=== PATIENT | male | born 1960 | race Caucasian/White ===

== ENCOUNTER 2017-10-24 01:17 | Inpatient (IN) | payer OTHER ==
[~2017-10-24] VITALS: Ht 177.8 cm; Wt 129.3 kg
[~2017-10-24 01:17] MED LIST: ACIPHEX20 M1 PO; ALLOPURINOL300 M1 PO; ASPIRIN EC81 M1 PO; CRESTOR20 M2 PO; FLUOXETINE HCL10 M2 PO; LISINOPRIL20 M1 PO; LOPRESSOR50 M1 PO; NASONEX17 GM NASB; PROAIR HFA8.5 GM INH; SYMBICORT 16010.2 GM INH; VOLTAREN100 GM TOP
[2017-10-24 06:49] LABS: PT 10.9 SEC (9.4-12.5)
--- NOTE | 2017-10-24 10:19 | Operative Report ---
Operative/Inv Procedure Report Surgery Date: 10/24/17 Name of Procedure: Right total knee arthroplasty Pre-Operative Diagnosis: Right knee primary osteoarthritis Post-Operative Diagnosis: Same with final pathology pending Estimated Blood Loss: less than 50ml Surgeon/Race Relations Professor: Marycruz PEDERSON,Alexx Alvarado PA Anesthesia: moderate sedation, block Implants: Summit triathlon total knee system-size 6 femur, size 6 tibia, 9 mm cruciate retaining polyethylene, 31 patella Drains: None Specimens: Femoral, tibial, patellar bone, Microbiology: Urine Tourniquet: 59 minutes Complications: None Condition: Stable Operative Indication: Patient is a 56-year-old man with a long history of worsening right knee pain. He was diagnosed with osteoarthritis. Treatment has included medications activity modification injections but unfortunately had increasing symptoms that interfere with normal activities of daily living. He wished to proceed with total knee arthroplasty after risks benefits and expectations were discussed which included but were not limited to persistent knee pain, need for subsequent surgery, infection, DVT, injury blood vessel or nerve, anesthesia risks Operative/Procedure Note Note: Patient was brought to the operating room and transferred to the operating table. Once under appropriate anesthesia the right lower extremity was prepped and draped in standard fashion. Preoperative IV antibiotic's were given prophylactically. Leg was elevated exsanguinated tourniquet was inflated. Incision was made. Incision was taken down to the underlying retinaculum. A medial retinacular approach was used with extension into the medial quadriceps tendon. Osteophytes were noted along the medial plateau distal femur. Remnants of the medial lateral meniscal tissues were excised. Portion of the fat pad was excised for proper visualization. Remnants of the ACL were excised. Knee was flexed patella was subluxed. Drill was used to enter intramedullary canal for the intramedullary guide for the distal femoral cut. This was cutting guide was pinned in place for 6 valgus cut. The cut was made while protecting the soft tissues. The femur was incised was size 6. Size 6 cutting jig was pinned in place and all cuts were made. I then turned my attention to the tibia. Remnants of the posterior horns of the medial and lateral meniscus meniscal tissues were excised. PCL was recessed. Retractors were placed posteriorly medially and laterally. The external tibial alignment guide was used to pin the cutting block for the proximal tibial cut. This cut was made in the neutral plane from medial to lateral and reproducing patient's posterior slow-paced on intraoperative findings, preoperative templating. The cut was made. The tibia was sized to a size 6. Trial reduction was then completed. I was satisfied with the soft tissue balancing. The knee was taken out to full extension. I then measured the patella and the appropriate thickness was removed and then replaced with a 31 patella. The rotation was marked on the tibia. The 2 lug holes were drilled in the femur. I then removed all instrumentation. The final preparation of the tibia was completed using the previously marked rotation of the tibial component the tibial punch was used and then all his rotation was removed from the knee. Copious irrigation followed. Cement was being mixed on the back table. Once the cement was ready was applied to the dry clean bony surfaces of the tibia. The size 6 tibial component was impacted in place and excess cement was removed with curettes. I should mention prior to cementation of the tibia multiple small drill holes were made in the eburnated bone on the medial side for proper cement interdigitation. I then placed cement was dry clean bony surfaces of distal femur. The size 6 femoral component was impacted in place and excess cement was removed with curettes. The trial insert was placed and the knee was taken out to full extension. Cement was applied to the dry clean bony surfaces of the patella. The size 31 patella was impacted in place and excess cement was removed with Q with a knife. While waiting for the cement to harden the tibia. Articular pericapsular injection of a cocktail of ropivacaine with epinephrine and Toradol for postoperative pain and inflammation management. Once cement hardened I took the knee through range of motion. I was satisfied with the 9 mm insert. The trial insert was removed. Copious irrigation the tibial tray followed. Any remaining soft tissue, bone fragments or cement fragment was irrigated out of the tibial tray and then the definitive size 9 mm cruciate retaining polyethylene was impacted in place and the locking mechanism was confirmed. The knee was taken out to full extension. Excellent mid flexion stability. Full flexion to gravity. Copious irrigation followed. Tourniquet was deflated at 59 minutes. Patient had excellent patellofemoral tracking there was no need for a lateral release. Hemostasis was obtained. I then closed the retinacular incision with a minimal extension the quadriceps with interrupted #1 Vicryl sutures. Subcutaneous tissues closed in 2 layers with 2-0 Vicryl. Skin was closed with a running 3-0 Vicryl suture with the knee in flexion. Appropriate dressings were applied and patient was awakened and taken to recovery room in good condition. No intraoperative complications. Blood loss was less than 50 mL Discharge Disposition: PACU
[2017-10-24 13:30] VITALS: BP 118/82
[2017-10-24] MEDS ORDERED: METFORMIN HCL500 M2 (13:54)
--- NOTE | 2017-10-24 14:09 | PN- Orthopedic ---
Subjective Subjective: POC Pt had 1 episode of vomitus after the procedure associated with sweating. Nausea has resolved now. Denies pain at the given moment. Has not gotten out of bed yet. Patient is awaiting PT evaluation. Pt informed us he takes Metformin at home for diabetes. Pt denies any CP, SOB or discomfort at this time. Objective Vital Signs and I&Os see EMR Physical Exam: GEN- Middle aged man, sitting up in bed, NAD. Irby in place. CARD- Regular rate and rhythm. S1 and S2 heard with no murmurs, rubs or gallops appreciated. Radial pulses palpable. PULM-Even, non-labored rise and fall of the chest noted. Normal breath sounds heard in anterior and posterior lung huff. No wheezes, rales or rhonchi appreciated. ABD- Soft, non-tender, non-distended. EXT-RLE elevated on pillow with dressing clean, dry and intact.gross sensation intact bl feet/ankles. +dorsi/plantar felxion, equal strength bl. Ice pack in place on right knee. Bilateral lower calves are soft and non-tender. Dorsalis pedis and posterior tibialis pulses palpable bilaterally. ALP devices in place. Current Medications: Current Medications Sig/Arianne Start time Last Medication Dose Route Stop Time Status Admin Acetaminophen 0 .STK-MED ONE 10/25 711 DC PO Acetaminophen 0 .STK-MED ONE 10/24 0710 DC IV Acetaminophen 650 MG ONCE 10/24 0000 DC PO 10/24 2359 Albuterol Sulfate 2 PUF Q4-6 PRN PRN 10/24 1315 AC INH Allopurinol 300 MG DAILY 10/25 0900 AC PO Apixaban 2.5 MG BID 10/25 09 AC PO Atorvastatin Calcium 80 MG 1700 10/24 1700 AC PO Budesonide/ 2 PUF BID 10/24 2100 AC Formoterol Fumarate INH Celecoxib 400 MG DAILY 10/25 09 AC PO Celecoxib 400 MG ONCE 10/24 0000 DC PO 10/24 2359 Dexamethasone 0 .STK-MED ONE 10/24 0712 DC .ROUTE Dexamethasone 10 MG ONCE 10/24 0000 DC IV 10/24 2359 Docusate Sodium 100 MG BID PRN 10/24 1015 AC PO Fentanyl Citrate 0 .STK-MED ONE 10/24 0711 DC .ROUTE Fluoxetine HCl 10 MG DAILY 10/25 09 AC PO Gabapentin 0 .STK-MED ONE 10/24 0712 DC PO Gabapentin 300 MG ONCE 10/24 0000 DC PO 10/24 2359 Insulin Aspart 0 TIDAC 10/24 1700 AC SC Lisinopril 20 MG DAILY 10/25 0900 AC PO Metoprolol Tartrate 75 MG BID 10/24 2100 AC PO Midazolam HCl 0 .STK-MED ONE 10/24 0711 DC .ROUTE Morphine Sulfate 2 MG Q3P PRN 10/24 1315 AC IV Morphine Sulfate 0 .STK-MED ONE 10/24 0711 DC .ROUTE Omeprazole 40 MG DAILY AC 10/25 0700 AC PO Ondansetron HCl 4 MG Q6P PRN 10/24 1315 AC 10/24 IV 1337 Ondansetron HCl 0 .STK-MED ONE 10/24 0711 DC .ROUTE Oxycodone HCl 0 .STK-MED ONE 10/24 0712 DC PO Oxycodone HCl 10 MG ONCE 10/24 0000 DC PO 10/24 2359 Oxycodone/ 1 TAB Q4P PRN 10/24 1315 AC Acetaminophen PO Oxycodone/ 2 TAB Q4P PRN 10/24 1315 AC Acetaminophen PO Polyethylene Glycol 17 GM DAILY PRN 10/24 1015 AC PO Scopolamine HBr 0 .STK-MED ONE 10/24 0711 DC TOP Scopolamine HBr 1 PAT ONCE 10/24 0000 DC TOP 10/24 2359 Senna/Docusate Sodium 2 TAB AT BEDTIME NEED.. 10/24 1315 AC PO Sodium Chloride 1,000 ML .[id number] 10/24 1315 AC 10/24 IV 1337 Tiotropium Douglas 1 PUF DAILY 10/25 0900 AC INH Tranexamic Acid 0 .STK-MED ONE 10/24 0737 DC IV Vancomycin HCl 2,000 MG ONCE ONE 10/24 1900 AC Sodium Chloride 500 ML IV 10/24 205 Vancomycin HCl 2,000 MG ONCE 10/24 0000 DC Sodium Chloride 500 ML IV 10/24 2359 Results Last 48 Hours of Labs: Laboratory Tests 10/24 0629 Coagulation PT (9.4 - 12.5 SEC) 10.9 INR (0.90 - 1.17) 1.00 Assessment/Plan Assessment/Plan A:Pt is a 56 year old male POD #0 sp right total knee replacement due to primary osteoarthritis, past medical history includes Type II DM, HTN and COPD, Pt had one episode of nausea and vomiting, which has since resolved. Post-operative pain is well controlled P: Continue to follow patient and monitor pain control and nausea. Hold patient's at home metformin and start low dose insulin sliding scale. Diet changed to consistent carbohydrate diet. Will plan to remove Irby in the morning (10/26) Can be weight bearing as tolerated. Physical Therapy to see the patient. On Eliquis 2.5 mg BID for DVT prophylaxis Dressing to be changed on POD #2 (10/27) Continue patient's at home medications. Core Measures Venous Thromboembolism VTE Risk Factors Surgery No Mechanical VTE Prophylaxis d/t N/A MechProphylax Ordered No VTE Pharm Prophylaxis d/t NA PharmProphylax ordered
--- NOTE | 2017-10-24 14:10 | Admission Core Measures ---
Acute Coronary Syndrome (CM) ACS Core Measures Acute Coronary Syndrome Diagnosis No Congestive Heart Failure (NEW) CHF Core Measures Congestive Heart Failure Diagnosis No Cerebrovascular Accident CVA Core Measures CVA/TIA Diagnosis No Venous Thromboembolism VTE Core Augustine (View Protocol) VTE Risk Factors Surgery No Mechanical VTE Prophylaxis d/t N/A MechProphylax Ordered No VTE Pharm Prophylaxis d/t NA PharmProphylax ordered Problem List As ranked by this Provider includes Assessment & Plan 1. Primary osteoarthritis of right knee HOME MEDS Home Med List Albuterol Sulfate (Proair Hfa) 90 MCG HFA.AER.AD 2 PUF INH Q4-6 PRN PRN RESCUE INHALER (Reported) Allopurinol 300 MG TABLET 1 TAB PO DAILY GOUT (Reported) Aspirin (Ecotrin*) 81 MG TABLET.DR 1 TAB PO DAILY CARDIAC (Reported) Budesonide/Formoterol Fumarate (Symbicort 160-4.5 Mcg Inhaler) 160 MCG-4.5 MCG/ ACTUATION HFA.AER.AD 2 PUF INH BID COPD (Reported) Diclofenac Sodium (Voltaren) 1 % GEL..GRAM. 1 GM TOP 4 TIMES/DAY PAIN ( Reported) Fluoxetine HCl 10 MG CAPSULE 1 CAP PO DAILY MOOD (Reported) Lisinopril 20 MG TABLET 1 TAB PO DAILY HTN (Reported) Metoprolol Tartrate (Lopressor) 50 MG TABLET 1.5 TAB PO BID CARDIAC (Reported ) Mometasone Furoate (Nasonex) 50 MCG SPRAY.PUMP 1 SPRAY NASB DAILY ALLERGIES ( Reported) Rabeprazole Sodium (Aciphex) 20 MG TABLET.DR 1 TAB PO DAILY GI (Reported) Rosuvastatin Calcium (Crestor) 20 MG TABLET 1 TAB PO DAILY CHOLESTEROL ( Reported)
--- NOTE | 2017-10-24 14:13 | Surgical Discharge Summary ---
Visit Information Visit Dates Admission Date: 10/24/17 Discharge Date: 10/27/2017 History of Present Illness Chief Complaint: knee pain r/t osteoarthritis Medical History Isolation History: Standard Surgical History Pertinent Surgical History: knee replacement Review of Systems: see H&P Hospital Course Course Attending Physician: Christiano Joel MD Primary Care Physician: Gal PEDERSON,[facility] Course: Patient was admitted to the hospital for an elective right total knee replacement. The procedure was tolerated well and patient was transferred to a general surgical floor. Postoperatively patient appeared to have an acute kidney injury with creatinine elevated to 1.6. His NATALIE inhibitor, Celebrex, and metformin were held and IV fluids were given until his creatinine returned to baseline of 0.9, then home medications were restarted. Diet was advanced and tolerated. The patient was evaluated and treated by physical therapy. At the time of hospital discharge, the vital signs were stable, neurovascular status was intact, and pain was controlled with the use of oral pain medications. Allergies: Coded Allergies: No Known Allergies (10/17/17) Significant Procedures: 10/24/17: right total knee replacement Disposition Summary Disposition Principal Diagnosis: right knee primary osteoarthritis Additional Diagnosis: sp r total knee replacement Discharge Disposition: home health services Discharge Instructions General Discharge Information Code Status: Full Code Patient's Diet: diabetic Patient's Activity: WBAT Follow-Up Instructions/Appts: Call to be seen in office in 2 weeks Please follow-up with primary care physician within 1 week of discharge Medications at Discharge Discharge Medications: Continue taking these medications: Albuterol Sulfate (Proair Hfa) 90 MCG HFA.AER.AD 2 Puff Inhale through mouth EVERY 4-6 HOURS NEEDED as needed for RESCUE INHALER Allopurinol (Allopurinol) 300 MG TABLET 1 Tablet ORAL DAILY Aspirin (Ecotrin*) 81 MG TABLET.DR 1 Tablet ORAL DAILY Diclofenac Sodium (Voltaren) 1 % GEL..GRAM. 1 Gram On the skin 4 TIMES A DAY Instructions: apply to affected area(s) Fluoxetine HCl (Fluoxetine HCl) 10 MG CAPSULE 1 Capsule ORAL DAILY Lisinopril (Lisinopril) 20 MG TABLET 1 Tablet ORAL DAILY Metoprolol Tartrate (Lopressor) 50 MG TABLET 1.5 Tablet ORAL TWICE DAILY Rabeprazole Sodium (Aciphex) 20 MG TABLET.DR 1 Tablet ORAL DAILY Rosuvastatin Calcium (Crestor) 20 MG TABLET 1 Tablet ORAL DAILY Budesonide/Formoterol Fumarate (Symbicort 160-4.5 Mcg Inhaler) 160 MCG-4.5 MCG/ ACTUATION HFA.AER.AD 2 Puff Inhale through mouth TWICE DAILY Mometasone Furoate (Nasonex) 50 MCG SPRAY.PUMP 1 [place] Both sides of nose DAILY Metformin HCl (Metformin HCl ER) (Unknown Strength) TAB.ER.24 Unknown Dose Copies To: Gal PEDERSON,Paramjit
--- NOTE | 2017-10-24 14:17 | Patient Discharge Instructions ---
Discharge Instructions General Discharge Information You were seen/treated for: right knee pain r/t osteoarthritis You had these procedures: right total knee replacement Watch for these problems: Increasing pain despite the use of pain medication Increasing redness, warmth or swelling Drainage of any type from incision Inability to bear weight on operative leg Persistent nausea and vomiting Fever greater than 101.5 degrees Other wound care: Keep wound clean and dry. No ointments or lotions of any type on or near incision at any time. Your dressing will be changed by your nurse on the second day after your surgery. Daily dry dressing changes are recommended each day thereafter. Do not soak your wound in a bath or pool at any time until otherwise indicated by your surgeon. You may shower, please dry wound immediately after shower with a clean towel. Special Instructions: Take Eliquis as directed for prevention of postoperative blood clots. Follow-up with your primary care physician to monitor renal function, as your creatinine was elevated immediately postoperatively but has since normalized. Diet Recommended Diet: Diabetic Activity Activity Limited to: Weight bear as tolerated Additional ACTIVITY Info: use assistive devices as needed Acute Coronary Syndrome Inclusion Criteria At DC or during hospital stay patient has or had the following: ACS DIAGNOSIS No Discharge Core Measures Meds if any: Prescribed or Continued at Discharge Meds if any: NOT Prescribed or Continued at Discharge Congestive Heart Failure Inclusion Criteria At DC or during hospital stay patient has or had the following: CHF DIAGNOSIS No Discharge Core Measures Meds if any: Prescribed or Continued at Discharge Meds if any: NOT Prescribed or Continued at Discharge Cerebrovascular accident Inclusion Criteria At DC or during hospital stay patient has or had the following: CVA/TIA Diagnosis No Discharge Core Measures Meds if any: Prescribed or Continued at Discharge Meds if any: NOT Prescribed or Continued at Discharge Venous thromboembolism Inclusion Criteria VTE Diagnosis No VTE Type NONE VTE Confirmed by (Test) NONE Discharge Core Measures - Per Current guidelines, there needs to be overlap - treatment for the first 5 days of Warfarin therapy. - If discharged on Warfarin prior to 5 days of - overlap therapy, the patient will need to be - assessed for post discharge needs including - *Post discharge parental anticoagulation - *Warfarin and/or parental anticoagulation education - *Follow up date to check INR post discharge At least 5 days overlap therapy as Inpatient No Meds if any: Prescribed or Continued at Discharge Note: Overlap Therapy is Warfarin and Anticoagulant Meds if any: NOT Prescribed or Continued at Discharge Note: Overlap Therapy is Warfarin and Anticoagulant Meds if any: NOT Prescribed or Continued at Discharge
[2017-10-24 15:16] VITALS: BP 100/82
[2017-10-24 17:45] VITALS: BP 108/62
[2017-10-24 20:04] VITALS: BP 112/66
[2017-10-25 00:11] VITALS: BP 107/59
[2017-10-25 04:00] VITALS: BP 105/61
--- NOTE | 2017-10-25 07:44 | PN- Orthopedic ---
See Addendum Subjective Subjective: Patient comfortable, starting to get some feeling back in the right leg, pain increasing in the right leg. Irby was removed, trial of void. No fever no flulike illness. Nausea resolved. Objective Vital Signs and I&Os Vital Signs Date Time Temp Pulse Resp B/P B/P Pulse O2 O2 Flow FiO2 Mean Ox Delivery Rate 10/25 0400 98.0 62 20 105/61 93 CPAP 10/25 0022 62 92 10/25 0011 97.8 60 20 107/59 93 CPAP 10/24 2147 68 91 10/25 2003 97.4 72 20 112/66 88 10/24 1745 97.6 74 18 108/62 92 10/24 1516 97.4 92 20 100/82 92 Room Air 10/24 1330 98.6 64 20 118/82 93 Room Air Intake & Output 10/25 0810/25 0000 10/24 1600 10/24 0800 10/24 0000 10/23 1600 Intake Total 720 1000 875 Output Total 650 300 Balance 70 700 875 Intake, IV 600 600 75 Intake, Oral 120 400 800 Number 0 Bowel Movements Output, 300 Emesis Output, Urine 650 Patient 285 lb Weight Physical Exam: Well-developed well-nourished no apparent distress. HEENT: Atraumatic, extraocular motion intact Neck: Supple, no lymphadenopathy Respiratory: No respiratory distress Extremities: No edema RIGHT lower extremity dressing in place, Range of motion 0-[address] ALPS in place Neurovascularly intact distally Bilateral calves are supple, negative Homans Neuro: Alert and oriented x3 Psych: Mood affect normal, normal memory normal judgment. Skin: Warm and dry, no rash on exposed skin Results Last 48 Hours of Labs: Laboratory Tests 10/24 0629 Coagulation PT (9.4 - 12.5 SEC) 10.9 INR (0.90 - 1.17) 1.00 Assessment/Plan Assessment/Plan Postop day #1 status post right total knee arthroplasty Perioperative antibiotics. Pain medication as needed. Out of bed Physical therapy, weightbearing as tolerated DC IV fluids Irby catheter removed, trial of void Regular diet Follow a.m. labs Eliquis for DVT prophylaxis Continue to monitor blood sugar, regular insulin sliding scale ALPS for DVT prophylaxis Regular home meds Dressing change postop day 2 Core Measures Venous Thromboembolism VTE Risk Factors Surgery No Mechanical VTE Prophylaxis d/t N/A [facility] Or[facility] No VTE Pharm Prophylaxis d/t NA PharmProphylax ordered
[2017-10-25 07:58] VITALS: BP 100/68
[2017-10-25 09:16] LABS: ABSOLUTE BASOPHIL COUNT 0 /CUMM (0.0-0.2); ABSOLUTE EOSINOPHIL COUNT 0 /CUMM (0.0-0.7); ABSOLUTE GRANULOCYTE CT 13.4 /CUMM (1.4-6.5); ABSOLUTE LYMPH COUNT 1.2 /CUMM (1.2-3.4); ABSOLUTE MONOCYTE COUNT 0.9 /CUMM (0.10-0.60); BASOPHIL % 0 % (0.0-2.0); EOSINOPHIL % 0 % (0-5); HEMATOCRIT 39.5 % (42-52); MEAN CORPUSCULAR HGB 33.8 PG (27.0-31.0); MEAN CORPUSCULAR HGB CONC 34.4 G/DL (33.0-37.0); MEAN PLATELET VOLUME 7.5 FL (7.4-10.4); PLATELET COUNT 161 /CUMM (130-400); RBC DISTRIBUTION WIDTH 12.6 % (11.5-14.5); RED BLOOD CELL CT 4.03 /CUMM (4.70-6.10); WHITE BLOOD CELL COUNT 15.4 /CUMM (4.8-10.8)
[2017-10-25 09:36] LABS: GRANULOCYTE % 86.7 % (42.2-75.2)
[2017-10-25 12:10] VITALS: BP 114/80
[2017-10-25 22:16] VITALS: BP 106/66
[2017-10-26 06:37] VITALS: BP 118/76
--- NOTE | 2017-10-26 07:49 | PN- Orthopedic ---
See Addendum Subjective Subjective: Patient reports postop pain in his knee extending down his leg. He reports right sided lower extremity parathesias, hx of sciatica. He reports voiding frequently and is tolerating a diabetic diet. He states he ambulated with PT twice yesterday. Objective Vital Signs and I&Os Vital Signs Date Time Temp Pulse Resp B/P B/P Pulse O2 O2 Flow FiO2 Mean Ox Delivery Rate 10/26 0637 98.3 68 18 118/76 94 Room Air 10/26 0102 86 95 10/25 2226 98 10/25 2216 98.1 72 18 106/66 95 Room Air 10/25 1210 98.4 75 20 114/80 91 Room Air 10/25 0940 93 Room Air 10/25 0821 68 100/68 10/25 0758 98.0 68 20 100/68 90 Room Air Intake & Output 10/26 0810/26 0000 10/25 1600 10/25 0800 10/25 0000 10/24 1600 Intake Total 1080 1722 274 1892 875 Output Total 850 250 650 300 Balance 230 750 70 700 875 Intake, IV 780 600 600 600 75 Intake, Oral 300 400 120 400 800 Number 0 0 0 Bowel Movements Output, 300 Emesis Output, Urine 850 250 650 Patient 285 lb Weight Physical Exam: Gen - resting comfortably in nad Cardiac - S1S2 noted Lungs - crackles at bases B/L Ext - RLE dressing c/d/i, incision with steris in places with surrounding edema, appropriately tender, compartment soft, moves all extremities, plantar/dorsi flexion intact, diminished motor function with elevation Current Medications: Current Medications Sig/Arianne Start time Last Medication Dose Route Stop Time Status Admin Acetaminophen 650 MG Q4P PRN 10/25 08 AC PO Albuterol Sulfate 2 PUF Q4-6 PRN PRN 10/24 1315 AC INH Allopurinol 300 MG DAILY 10/25 09 AC 10/25 PO 820 Apixaban 2.5 MG BID 10/25 09 AC 10/25 PO 2037 Atorvastatin Calcium 80 MG 1700 10/24 1700 AC 10/25 PO 1624 Budesonide/ 2 PUF BID 10/24 2100 AC 10/25 Formoterol Fumarate INH 2038 Celecoxib 400 MG DAILY 10/25 0900 DC 10/25 PO 0821 Docusate Sodium 100 MG BID PRN 10/24 1015 AC PO Fluoxetine HCl 10 MG DAILY 10/25 0900 AC 10/25 PO 0821 Insulin Aspart 0 TIDAC 10/24 1700 AC 10/25 SC 1624 Lisinopril 20 MG DAILY 10/25 0900 DC 10/25 PO 0821 Metoprolol Tartrate 75 MG BID 10/24 2100 AC 10/25 PO 2037 Morphine Sulfate 2 MG Q3P PRN 10/24 1315 AC 10/26 IV 0739 Omeprazole 40 MG DAILY AC 10/25 0700 AC 10/26 PO 0544 Ondansetron HCl 4 MG Q6P PRN 10/24 1315 AC 10/24 IV 1337 Oxycodone HCl 10 MG Q4P PRN 10/25 0800 AC PO Oxycodone HCl 15 MG Q4P PRN 10/25 0800 AC 10/26 PO 0544 Oxycodone HCl 5 MG ONCE ONE 10/25 0800 DC 10/25 PO 10/25 0801 0821 Oxycodone/ 1 TAB Q4P PRN 10/24 1315 DC Acetaminophen PO Oxycodone/ 2 TAB Q4P PRN 10/24 1315 DC 10/25 Acetaminophen PO 0542 Patient Medication 1 ED ONE ONE 10/25 1915 DC 10/25 Teaching ED 10/25 1916 2038 Polyethylene Glycol 17 GM DAILY 10/25 0900 AC 10/25 PO 0821 Polyethylene Glycol 17 GM DAILY PRN 10/24 1015 DC PO 10/25 0859 Senna/Docusate Sodium 2 TAB AT BEDTIME NEED.. 10/24 1315 AC PO Sodium Chloride 1,000 ML Q6H 10/25 1730 AC 10/26 IV 0104 Sodium Chloride 500 ML BOLUS ONE 10/25 1145 DC 10/25 IV 10/25 1244 1211 Tiotropium [place] 1 PUF DAILY 10/25 0900 AC 10/25 INH 0821 Results Last 48 Hours of Labs: Laboratory Tests 10/26 10/25 10/25 0720 2040 1610 Chemistry Sodium Pending Potassium Pending Chloride Pending Carbon Dioxide Pending Anion Gap Pending BUN (9 - 20 mg/dL) Pending 47 H Creatinine (0.7 - 1.2 mg/dL) Pending 1.6 H Estimated GFR (>60 ml/min) 45 L BUN/Creatinine Ratio (7 - 25 %) Pending 29.4 H Hematology CBC w Diff Pending WBC Pending RBC Pending Hgb Pending Hct Pending MCV Pending MCH Pending MCHC Pending RDW Pending Plt Count Pending MPV Pending Urines Ur Random Creatinine (mg/dL) 108.4 Ur Random Sodium (30 - 90 mmol/L) 43 Ur Random Potassium (mmol/L) 27.3 Fraction Sodium Excret (<1% %) 0.5 10/25 0901 Chemistry Sodium (137 - 145 mmol/L) 136 L Potassium (3.5 - 5.1 mmol/L) 4.6 Chloride (98 - 107 mmol/L) 103 Carbon Dioxide (22 - 30 mmol/L) 24 Anion Gap (5 - 16) 9 BUN (9 - 20 mg/dL) 41 H Creatinine (0.7 - 1.2 mg/dL) 1.6 H Estimated GFR (>60 ml/min) 45 L BUN/Creatinine Ratio (7 - 25 %) 25.6 H Hematology CBC w Diff NO MAN DIFF REQ WBC (4.8 - 10.8 /CUMM) 15.4 H RBC (4.70 - 6.10 /CUMM) 4.03 L Hgb (14.0 - 18.0 G/DL) 13.6 L Hct (42 - 52 %) 39.5 L MCV (80.0 - 94.0 FL) 98.0 H MCH (27.0 - 31.0 PG) 33.8 H MCHC (33.0 - 37.0 G/DL) 34.4 RDW (11.5 - 14.5 %) 12.6 Plt Count (130 - 400 /CUMM) 161 MPV (7.4 - 10.4 FL) 7.5 Gran % (42.2 - 75.2 %) 86.7 H Lymphocytes % (20.5 - 51.1 %) 7.5 L Monocytes % (1.7 - 9.3 %) 5.8 Eosinophils % (0 - 5 %) 0 Basophils % (0.0 - 2.0 %) 0 Absolute Granulocytes (1.4 - 6.5 /CUMM) 13.4 H Absolute Lymphocytes (1.2 - 3.4 /CUMM) 1.2 Absolute Monocytes (0.10 - 0.60 /CUMM) 0.9 H Absolute Eosinophils (0.0 - 0.7 /CUMM) 0 Absolute Basophils (0.0 - 0.2 /CUMM) 0 Assessment/Plan Assessment/Plan 56 M POD 2 s/p R TKR Cont ada diet, IVF at 150 for ANKUR Pain regimen prn, wean IV narcotics OOB w/ PT, WBAT DVT ppx - alps, eliquis bid Eliquis for DVT prophylaxis Cont regular insulin sliding scale Metformin, lisinopril on hold, no nsaids F/u labs Consider nephrology c/s if ANKUR unchanged Daily dressing changes Anticipate d/c home w/ h[facility] in 1-2 days D/w Dr. Casiano Core Measures Venous Thromboembolism VTE Risk Factors Surgery No Mechanical VTE Prophylaxis d/t N/A MechProphylax Ordered No VTE Pharm Prophylaxis d/t NA PharmProphylax ordered
[2017-10-26 08:07] LABS: ABSOLUTE BASOPHIL COUNT 0 /CUMM (0.0-0.2); ABSOLUTE EOSINOPHIL COUNT 0.2 /CUMM (0.0-0.7); ABSOLUTE GRANULOCYTE CT 7.7 /CUMM (1.4-6.5); ABSOLUTE LYMPH COUNT 1.8 /CUMM (1.2-3.4); ABSOLUTE MONOCYTE COUNT 0.8 /CUMM (0.10-0.60); BASOPHIL % 0.3 % (0.0-2.0); EOSINOPHIL % 1.7 % (0-5); GRANULOCYTE % 73.3 % (42.2-75.2); HEMATOCRIT 36.3 % (42-52); MEAN CORPUSCULAR HGB 33.8 PG (27.0-31.0); MEAN CORPUSCULAR HGB CONC 34.4 G/DL (33.0-37.0); MEAN CORPUSCULAR VOLUME 98.2 FL (80.0-94.0); MEAN PLATELET VOLUME 7.8 FL (7.4-10.4); PLATELET COUNT 127 /CUMM (130-400); RBC DISTRIBUTION WIDTH 13.1 % (11.5-14.5); WHITE BLOOD CELL COUNT 10.5 /CUMM (4.8-10.8)
[2017-10-26 14:15] VITALS: BP 124/86
--- NOTE | 2017-10-26 15:01 | RADIOLOGY REPORT ---
EXAMINATION: XR KNEE, RIGHT CLINICAL INFORMATION: Status post right total knee arthroplasty. COMPARISON: None. TECHNIQUE: AP and cross table lateral views of the right knee were obtained. FINDINGS: There are sequelae of a total knee arthroplasty. The hardware appears intact. There are no acute osseous findings. There are postoperative changes in the periarticular soft tissues. IMPRESSION: 1. X-rays of the knee demonstrating recent total knee arthroplasty.
[2017-10-26 21:41] VITALS: BP 136/90
[2017-10-27 05:51] VITALS: BP 134/68
[2017-10-27 08:42] LABS: ABSOLUTE BASOPHIL COUNT 0 /CUMM (0.0-0.2); ABSOLUTE EOSINOPHIL COUNT 0.2 /CUMM (0.0-0.7); ABSOLUTE GRANULOCYTE CT 6.8 /CUMM (1.4-6.5); ABSOLUTE LYMPH COUNT 1.8 /CUMM (1.2-3.4); ABSOLUTE MONOCYTE COUNT 0.8 /CUMM (0.10-0.60); BASOPHIL % 0.3 % (0.0-2.0); EOSINOPHIL % 2.4 % (0-5); GRANULOCYTE % 70.5 % (42.2-75.2); HEMATOCRIT 36.7 % (42-52); MEAN CORPUSCULAR HGB 33.8 PG (27.0-31.0); MEAN CORPUSCULAR HGB CONC 34.6 G/DL (33.0-37.0); MEAN CORPUSCULAR VOLUME 97.6 FL (80.0-94.0); MEAN PLATELET VOLUME 7.7 FL (7.4-10.4); PLATELET COUNT 140 /CUMM (130-400); RBC DISTRIBUTION WIDTH 12.8 % (11.5-14.5); RED BLOOD CELL CT 3.76 /CUMM (4.70-6.10); WHITE BLOOD CELL COUNT 9.7 /CUMM (4.8-10.8)
--- NOTE | 2017-10-27 09:46 | PN- Orthopedic ---
Subjective Subjective: Patient resting in bed. Still with right knee pain, will restart Celebrex today. Patient is ambling with PT and has been cleared for home. He is voiding. Has not had a bowel movement yet. Denies chest pain shortness of breath and fevers. Objective Vital Signs and I&Os Vital Signs Date Time Temp Pulse Resp B/P B/P Pulse O2 O2 Flow FiO2 Mean Ox Delivery Rate 10/27 0551 98.4 76 20 134/68 93 CPAP 10/26 2141 98.4 78 21 136/90 94 Room Air 10/26 2108 82 91 10/26 1415 98.2 86 18 124/86 91 Room Air Intake & Output 10/27 1600 10/27 0800 10/27 0000 10/26 1600 10/26 0000 Intake Total 250 371 669 0598 1080 Output Total 900 2000 1650 950 850 Balance -650 -1870 -830 170 230 Intake, IV 10 10 200 1000 780 Intake, Oral 240 120 620 120 300 Number 0 0 Bowel Movements Output, Urine 900 1999 1650 950 850 Physical Exam: General- NAD Resperations- clear bialaterlly Cardiac-regular rate and rhythm Abdomen-soft nontender with positive bowel sounds Extremities-dressing is clean and dry, thigh is soft with no erythema, minimal tenderness around incision. Calves are soft bilaterally and non-tenderness. Distal sensory and motor function is intact. 1+ dorsalis pedis pulse bilaterally Current Medications: Current Medications Sig/Arianne Start time Last Medication Dose Route Stop Time Status Admin Acetaminophen 650 MG Q4P PRN 10/25 08 AC PO Albuterol Sulfate 2 PUF Q4-6 PRN PRN 10/24 1315 AC INH Allopurinol 300 MG DAILY 10/25 09 AC 10/27 PO 0814 Apixaban 2.5 MG BID 10/25 09 AC 10/27 PO 0814 Atorvastatin Calcium 80 MG 1700 10/24 1700 AC 10/26 PO 1800 Budesonide/ 2 PUF BID 10/24 2100 AC 10/27 Formoterol Fumarate INH 0817 Celecoxib 400 MG DAILY 10/28 0900 AC PO Docusate Sodium 100 MG BID PRN 10/24 1015 AC 10/27 PO 0819 Fluoxetine HCl 10 MG DAILY 10/25 09 AC 10/27 PO 0813 Insulin Aspart 0 TIDAC 10/24 1700 AC 08/28 SC 1624 Lisinopril 20 MG DAILY 10/28 0900 AC PO Metoprolol Tartrate 75 MG BID 10/24 2100 AC 10/27 PO 0814 Morphine Sulfate 2 MG Q3P PRN 10/24 1315 DC 10/27 IV 0613 Omeprazole 40 MG DAILY AC 10/25 0700 AC 10/27 PO 0613 Ondansetron HCl 4 MG Q6P PRN 10/24 1315 AC 10/24 IV 1337 Oxycodone HCl 10 MG Q4P PRN 10/25 08 AC PO Oxycodone HCl 15 MG Q4P PRN 10/25 0800 AC 10/27 PO 0813 Polyethylene Glycol 17 GM DAILY 10/25 09 AC 10/27 PO 0825 Senna/Docusate Sodium 2 TAB AT BEDTIME NEED.. 10/24 1315 AC 10/26 PO 2055 Sodium Chloride 1,000 ML Q6H 10/25 1730 DC 10/26 IV 0746 Tiotropium [place] 1 PUF DAILY 10/25 09 AC 10/27 INH 0814 Results Last 48 Hours of Labs: Laboratory Tests 10/27 10/26 0739 0720 Chemistry Sodium (137 - 145 mmol/L) 136 L 136 L Potassium (3.5 - 5.1 mmol/L) 4.0 4.3 Chloride (98 - 107 mmol/L) 103 107 Carbon Dioxide (22 - 30 mmol/L) 30 26 Anion Gap (5 - 16) 3 L 4 L BUN (9 - 20 mg/dL) 14 31 H Creatinine (0.7 - 1.2 mg/dL) 0.9 1.0 Estimated GFR (>60 ml/min) > 60 > 60 BUN/Creatinine Ratio (7 - 25 %) 15.6 31.0 H Hematology CBC w Diff NO MAN DIFF REQ NO MAN DIFF REQ WBC (4.8 - 10.8 /CUMM) 9.7 10.5 RBC (4.70 - 6.10 /CUMM) 3.76 L 3.70 L Hgb (14.0 - 18.0 G/DL) 12.7 L 12.5 L Hct (42 - 52 %) 36.7 L 36.3 L MCV (80.0 - 94.0 FL) 97.6 H 98.2 H MCH (27.0 - 31.0 PG) 33.8 H 33.8 H MCHC (33.0 - 37.0 G/DL) 34.6 34.4 RDW (11.5 - 14.5 %) 12.8 13.1 Plt Count (130 - 400 /CUMM) 140 127 L MPV (7.4 - 10.4 FL) 7.7 7.8 Gran % (42.2 - 75.2 %) 70.5 73.3 Lymphocytes % (20.5 - 51.1 %) 18.7 L 17.5 L Monocytes % (1.7 - 9.3 %) 8.1 7.2 Eosinophils % (0 - 5 %) 2.4 1.7 Basophils % (0.0 - 2.0 %) 0.3 0.3 Absolute Granulocytes (1.4 - 6.5 /CUMM) 6.8 H 7.7 H Absolute Lymphocytes (1.2 - 3.4 /CUMM) 1.8 1.8 Absolute Monocytes (0.10 - 0.60 /CUMM) 0.8 H 0.8 H Absolute Eosinophils (0.0 - 0.7 /CUMM) 0.2 0.2 Absolute Basophils (0.0 - 0.2 /CUMM) 0 0 10/25 10/25 2040 1610 Chemistry BUN (9 - 20 mg/dL) 47 H Creatinine (0.7 - 1.2 mg/dL) 1.6 H Estimated GFR (>60 ml/min) 45 L BUN/Creatinine Ratio (7 - 25 %) 29.4 H Urines Ur Random Creatinine (mg/dL) 108.4 Ur Random Sodium (30 - 90 mmol/L) 43 Ur Random Potassium (mmol/L) 27.3 Fraction Sodium Excret (<1% %) 0.5 Assessment/Plan Assessment/Plan 56-year-old male with history of GERD, gout, hypertension, hyperlipidemia, COPD, depression, non-insulin dependent diabetes, and a history of an MN. He is status post right total knee arthroplasty postop day 3. Postoperative course was complicated by an acute kidney injury which she was given IV fluids for and his NATALIE inhibitor and Celebrex were stopped. His creatinine since normalized and medications were restarted. Patient was given instruction to follow-up with his primary care on discharge. pain management PT- WBAT with rolling walker. Cleared for home DVT PPX- Eliquis BID Regular diet Restart all regular home medications Encourage IS DC planning- home with [facility] today We will discuss with Dr. Joel Core Measures Venous Thromboembolism VTE Risk Factors Surgery No Mechanical VTE Prophylaxis d/t N/A MechProphylax Ordered No VTE Pharm Prophylaxis d/t NA PharmProphylax ordered
[2017-10-27] MEDS ORDERED: ELIQUIS2.5 M1 PO (10:06)
[2017-10-27] MEDS ORDERED: OXYCODONE HCL5 M1 PO (10:06)
[2017-10-27] MEDS ORDERED: METFORMIN HCL500 M2 PO (12:11)
[2017-10-27 14:40] VITALS: BP 112/60
== END 2017-10-27 14:58 | disposition home health service (06) | DRG 470 ==
LOC: SDA 01:17 → ENRESERV 12:05 → ENTRNSPT 12:44 → EDTRNSPTSTS 12:53 → 2NB 12:59 → CMPTRNSPT 13:08 → 2NB 16:45 → ENPENDDIS 10-27 10:16 → ENTRNSPT 10-27 14:52 → 2NB 10-27 14:58 → CMPTRNSPT 10-27 15:06
PROVIDERS: Nurse Practitioner; Orthopaedic Surgery; Physician Assistant Surgical
PROC: 3E0T3BZ Introduction of Anesthetic Agent into Peripheral Nerves and Plexi, Percutaneous Approach (ICD-10-PCS; principal; 2017-10-24)
PROC: 0SRC0J9 Replacement of Right Knee Joint with Synthetic Substitute, Cemented, Open Approach (ICD-10-PCS; principal; 2017-10-24)
DX: M17.11 Unilateral primary osteoarthritis, right knee (principal); N17.9 Acute kidney failure, unspecified; Z79.82 Long term (current) use of aspirin; Z79.51 Long term (current) use of inhaled steroids; K21.9 Gastro-esophageal reflux disease without esophagitis; I10 Essential (primary) hypertension; E78.5 Hyperlipidemia, unspecified; J44.9 Chronic obstructive pulmonary disease, unspecified; F32.9 Major depressive disorder, single episode, unspecified; E11.9 Type 2 diabetes mellitus without complications; I25.2 Old myocardial infarction
CPT/HCPCS: 2NSBP; 84133; 84300; 36415; 36592; 73560-RT; 82436; 82570; 87086; 97110-GO; 97116-GO; 97161-GP; 97530-GO; C1713; C9290; J0131; J0171; J1100; J1885; J2405; J2550; J2795; J3370; J3490; J7040